=== PATIENT | female | born 1940 | race Caucasian/White ===

== ENCOUNTER 2018-03-10 13:27 | Emergency (ER) | payer OTHER ==
[~2018-03-10 13:27] MED LIST: ALUPENT 20MG TA20 MG PO; AMITRIPTYLINE H25 MG PO; ASPIRIN CHILDRE81 MG PO; ATENOLOL25 MG PO; B12 1MG PE1000 MCG/M IM; ENBREL50 MG/ML SC; FOLIC ACID 1 MG PO; LEVOTHYROXINE0.1 M1 PO; METFORMIN HYD1000 MG PO; METHOTREXATE25 MG/M1 PO; MEVACOR20 MG PO; PRINIVIL 5MG5 MG PO; PROLIA60 MG/ML IV; ROBITUSSIN W/CO10 ML PO; TESSALON PERLE100 MG PO; TRAMADOL HYDROC50 MG PO; VERAPAMIL HCL120 M2 PO; VERAPAMIL HCL240 MG PO; VESICARE 5MG5 MG PO
--- NOTE | 2018-03-10 15:46 | CT SCAN REPORT ---
EXAMINATION: CT HEAD WITHOUT CONTRAST CLINICAL INFORMATION: Head injury. Laceration to head. COMPARISON: CT scan of the head 10/20/2017. TECHNIQUE: Contiguous axial imaging was performed from the skull base to vertex without intravenous administration of contrast. DLP: 618.18 mGy-cm FINDINGS: There is no evidence of acute intracranial hemorrhage or territorial infarction. No abnormal mass effect or midline shift is seen. Rosenberg to white matter differentiation is well preserved. No extra-axial fluid collections are identified. There is mild commensurate prominence of ventricles and sulci consistent with mild diffuse volume loss. There are scattered areas low-attenuation the periventricular and subcortical white matter, consistent with chronic microangiopathic changes. There is atheromatous calcification of the bilateral cavernous internal carotid arteries. A small calcification in the right posterior lower bea is unchanged. There is a small laceration with soft tissue swelling over the right periorbital region. There are no acute osseous findings. There have been bilateral lens extractions. There are degenerative changes of the bilateral temporomandibular joints. There is minimal mucoperiosteal thickening in the visualized left maxillary sinus. The nasal septum is slightly deviated to the right with a right-sided spur. The mastoid air cells are well-aerated. IMPRESSION: 1. There are no acute bleeds or territorial infarcts. 2. There are no acute osseous findings. There is a laceration over the right periorbital region. 3. The study redemonstrates diffuse volume loss and chronic microvascular ischemic disease. There is a stable calcification in the posterior lower bea.
--- NOTE | 2018-03-10 16:02 | ED GENERAL ADULT ---
History of Present Illness General Chief Complaint: Facial or Head Injury Stated Complaint: TELEVISION FELL ON FACE AND HEAD Source: patient Exam Limitations: no limitations Vital Signs & Intake/Output Vital Signs & Intake/Output Vital Signs Date Time Temp Pulse Resp B/P B/P Pulse O2 O2 Flow FiO2 Mean Ox Delivery Rate 03/10 1627 97.5 65 20 141/70 99 Room Air 03/10 1405 97.0 63 22 141/74 96 Allergies Coded Allergies: Penicillins (HIVES 02/08/16) adhesive tape (UNKNOWN 02/08/16) cephalexin (From KEFLEX) (HIVES 02/08/16) erythromycin base (HIVES 02/08/16) meperidine (HIVES 02/08/16) methocarbamol (From ROBAXIN) (HIVES 02/08/16) propoxyphene (UNKNOWN 02/08/16) sulindac (HIVES 02/08/16) tolmetin (From TOLECTIN) (UNKNOWN 02/08/16) Uncoded Allergies: DERMODEX (UNKNOWN 11/10/14) ZOMAX (UNKNOWN 11/10/14) Reconcile Medications AMITRIPTYLINE HCL (Amitriptyline HCl) 25 MG TABLET 1 TAB PO AT BEDTIME SLEEP (Reported) Aspirin (Children's Aspirin) 81 MG TAB.CHEW 1 TAB PO DAILY HEART HEALTH ( Reported) Atenolol 25 MG TABLET 1 TAB PO DAILY HTN (Reported) Benzonatate (Tessalon Perle) 100 MG CAPSULE 1 CAP PO Q8H COUGH (Reported) Cyanocobalamin (Cyanocobalamin Injection) 1,000 MCG/ML VIAL 1 ML IM Q30D supplement (Reported) Reason to Stop at ADM: MONTHLY INJECTION, NOT NEEDED IN THIS HOSPITAL STAY Denosumab (Prolia) 60 MG/ML SYRINGE 60 ML IV Q180D OSTEOPOROSIS (Reported) Reason to Stop at ADM: 6MONTHLY INJECTION, NOT NEEDED IN THIS HOSPITAL STAY Etanercept (Enbrel) 25 MG/0.5 ML (0.51 ML) SYRINGE 1 DOSE SC QW ARTHRITIS ( Reported) Reason to Stop at ADM: NOT NEEDED Folic Acid 1 MG TABLET 1 TAB PO DAILY SUPPLEMENT (Reported) Levothyroxine Sodium 0.1 MG TAB 1 TAB PO DAILY HYPOTHYROID (Reported) Lovastatin (Mevacor) 20 MG TABLET 1 TAB PO DAILY CHOLESTROL (Reported) Metaproterenol (Alupent 20MG Tablet) 20 MG TABLET 1 TAB PO DAILY BREATHING ( Reported) METFORMIN HCL (Metformin Hydrochloride) 1,000 MG TABLET 1 TAB PO BID DIABETES (Reported) Reason to Stop at ADM:ISS Methotrexate 2.5 MG TABLET 7 TAB PO ONCE A WEEK ARTHRITIS (Reported) Reason to Stop at ADM: NOT NEEDED Robitussin AC (Guaifenesin-Codeine Syrup) 200 MG-20 MG/10 ML LIQUID 5 ML PO Q6 COUGH Solifenacin Succinate (Vesicare) 5 MG TABLET 1 TAB PO DAILY BLADDER (Reported ) TRAMADOL HCL (Tramadol Hydrochloride) 50 MG TABLET 1 TAB PO Q6H PRN PAIN ( Reported) VERAPAMIL HCL (Verapamil ER) 120 MG TABLET.ER 1 TAB PO DAILY HEART Triage Note: PER PT PUTTING DOWN RECLINER LEG POPPED UP AND BOUNCED BACK 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 yes Onset: Abrupt Duration: hour(s): Timing: recent history HPI: 03/10/18 5:11 PM 77-year-old female presents to the emergency department after being hit on the head with a television. The patient was sitting in a recliner chair and it broke and she fell backwards. It hit the TV and this fell onto her head. She denies neck pain vomiting or other complaints. She has a 2 inch laceration to the right superior periorbital area, no other injuries. Past History Travel History Traveled to [place] past 21 day No Medical History Any Pertinent Medical History? see below for history Neurological: NONE EENT: NONE Cardiovascular: AFIB, hyperlipidemia Respiratory: NONE Gastrointestinal: NONE Hepatic: NONE Renal: NONE Musculoskeletal: NONE Psychiatric: NONE Endocrine: diabetes History of MRSA: No History of VRE: No History of CDIFF: No Surgical History Surgical History: non-contributory Psychosocial History Who do you live with Family Services at Home None What is your primary language Tajik Tobacco Use: Never used Family History Hx Contributory? No Review of Systems Review of Systems Constitutional: Denies: fever. EENTM: Denies: visual changes. Respiratory: Denies: short of breath. Cardiovascular: Denies: chest pain. GI: Denies: abdominal pain. Genitourinary: Reports: no symptoms. Musculoskeletal: Reports: see HPI. Skin: Reports: see HPI. Neurological/Psychological: Reports: see HPI. Hematologic/Endocrine: Reports: see HPI. Physical Exam Physical Exam General Appearance: alert, awake, anxious, mild distress Head: active bleeding Eyes: Bilateral: normal appearance, PERRL, EOMI. Ears, Nose, Throat: normal pharynx Neck: normal inspection, supple, full range of motion Respiratory: chest non-tender, no respiratory distress Cardiovascular: regular rate/rhythm Peripheral Pulses: 4+ radial (R), 4+ radial (L) Gastrointestinal: non-tender Back: normal range of motion Extremities: normal inspection Neurologic/Psych: no motor/sensory deficits, awake, alert, oriented x 3 Skin: 2 inch linear laceration right supraorbital area Core Measures ACS in differential dx? No CVA/TIA Diagnosis: No Sepsis Present: No Sepsis Focused Exam Completed? No Progress Differential Diagnoses I considered the following diagnoses in my evaluation of the patient: Plan of Care: Current Medications Sig/Frederick Start time Last Medication Dose Stop Time Status Admin Acetaminophen 650 MG ONCE ONE 03/10 1630 UNVr / (Tylenol) 03/10 163 1620 Lidocaine 10 ML ONCE ONE 03/10 1630 UNVr 05/08 (Lidocaine 1%) 03/10 1631 1620 Tetanus/Diphtheria 0.5 ML ONCE ONE 03/10 1630 UNVr 05/08 Toxoids Adsorbed 03/10 1631 1620 (Decavac) Initial ED EKG: none Departure Departure Disposition: HOME OR SELF CARE Condition: Stable Clinical Impression Primary Impression: Head injury Secondary Impressions: Laceration Referrals: Alejandra Roberts MD (PCP/Family) Departure Forms: Customer Survey General Discharge Information Comments ct PATIENT: LEONEL ARAUJO PRESENT AGE: 77 PATIENT ACCOUNT NO: [id number] : 40 LOCATION: [facility] ORDERING PHYSICIAN: Sj Abrams DO SERVICE DATE: 03/10/18 EXAM TYPE: CAT - CT HEAD WO IV CONTRAST EXAMINATION: CT HEAD WITHOUT CONTRAST CLINICAL INFORMATION: Head injury. Laceration to head. COMPARISON: CT scan of the head 10/20/2017. TECHNIQUE: Contiguous axial imaging was performed from the skull base to vertex without intravenous administration of contrast. DLP: 618.18 mGy-cm FINDINGS: There is no evidence of acute intracranial hemorrhage or territorial infarction. No abnormal mass effect or midline shift is seen. Rosenberg to white matter differentiation is well preserved. No extra-axial fluid collections are identified. There is mild commensurate prominence of ventricles and sulci consistent with mild diffuse volume loss. There are scattered areas low-attenuation the periventricular and subcortical white matter, consistent with chronic microangiopathic changes. There is atheromatous calcification of the bilateral cavernous internal carotid arteries. A small calcification in the right posterior lower bea is unchanged. There is a small laceration with soft tissue swelling over the right periorbital region. There are no acute osseous findings. There have been bilateral lens extractions. There are degenerative changes of the bilateral temporomandibular joints. There is minimal mucoperiosteal thickening in the visualized left maxillary sinus. The nasal septum is slightly deviated to the right with a right-sided spur. The mastoid air cells are well-aerated. IMPRESSION: 1. There are no acute bleeds or territorial infarcts. 2. There are no acute osseous findings. There is a laceration over the right periorbital region. 3. The study redemonstrates diffuse volume loss and chronic microvascular ischemic disease. There is a stable calcification in the posterior lower bea. DICTATED BY: Bipin Landon MD DATE/TIME DICTATED:03/10/181536 LICENSED REAL ESTATE BROKER:AIDA DATE/TIME TRANSCRIBED:03/10/181536 CONFIDENTIAL, DO NOT COPY WITHOUT APPROPRIATE AUTHORIZATION. <Electronically signed in Other Vendor System> SIGNED BY: Bipin Landon MD 03/10/18 1546 Critical Care Note Critical Care Note Critical Care Time: non-applicable Comments: Procedure Under sterile technique and local anesthesia to 2 inch laceration was closed with 8 5-0 nylon sutures by the PA student under my direct supervision. Wound was irrigated vigorously prior to closure. 5 mL of 1% lidocaine without epinephrine were utilized.
[2018-03-10 16:27] VITALS: BP 141/70
== END 2018-03-10 17:35 ==
LOC: ERH 13:27
DX: S09.90XA Unspecified injury of head, initial encounter (principal); S01.111A Laceration without foreign body of right eyelid and periocular area, initial encounter; W20.8XXA Other cause of strike by thrown, projected or falling object, initial encounter; Y93.9 Activity, unspecified; Y92.9 Unspecified place or not applicable
CPT/HCPCS: 90471; 90714; J2001

== ENCOUNTER 2018-03-17 10:22 | Emergency (ER) | payer OTHER ==
[~2018-03-17] VITALS: Ht 167.6 cm; Wt 126.6 kg
[2018-03-17 11:04] VITALS: BP 121/77
--- NOTE | 2018-03-17 11:25 | ED GENERAL ADULT ---
History of Present Illness General Chief Complaint: Suture Removal/Wound Recheck Stated Complaint: SUTURE REMOVAL Source: patient Exam Limitations: no limitations Vital Signs & Intake/Output Vital Signs & Intake/Output Vital Signs Date Time Temp Pulse Resp B/P B/P Pulse O2 O2 Flow FiO2 Mean Ox Delivery Rate 03/17 1104 98.6 80 18 121/77 99 Room Air Allergies Coded Allergies: Penicillins (HIVES 02/08/16) adhesive tape (UNKNOWN 02/08/16) cephalexin (From KEFLEX) (HIVES 02/08/16) erythromycin base (HIVES 02/08/16) meperidine (HIVES 02/08/16) methocarbamol (From ROBAXIN) (HIVES 02/08/16) propoxyphene (UNKNOWN 02/08/16) sulindac (HIVES 02/08/16) tolmetin (From TOLECTIN) (UNKNOWN 02/08/16) Uncoded Allergies: DERMODEX (UNKNOWN 11/10/14) ZOMAX (UNKNOWN 11/10/14) Reconcile Medications AMITRIPTYLINE HCL (Amitriptyline HCl) 25 MG TABLET 1 TAB PO AT BEDTIME SLEEP (Reported) Aspirin (Children's Aspirin) 81 MG TAB.CHEW 1 TAB PO DAILY HEART HEALTH ( Reported) Atenolol 25 MG TABLET 1 TAB PO DAILY HTN (Reported) Benzonatate (Tessalon Perle) 100 MG CAPSULE 1 CAP PO Q8H COUGH (Reported) Cyanocobalamin (Cyanocobalamin Injection) 1,000 MCG/ML VIAL 1 ML IM Q30D supplement (Reported) Reason to Stop at ADM: MONTHLY INJECTION, NOT NEEDED IN THIS HOSPITAL STAY Denosumab (Prolia) 60 MG/ML SYRINGE 60 ML IV Q180D OSTEOPOROSIS (Reported) Reason to Stop at ADM: 6MONTHLY INJECTION, NOT NEEDED IN THIS HOSPITAL STAY Etanercept (Enbrel) 25 MG/0.5 ML (0.51 ML) SYRINGE 1 DOSE SC QW ARTHRITIS ( Reported) Reason to Stop at ADM: NOT NEEDED Folic Acid 1 MG TABLET 1 TAB PO DAILY SUPPLEMENT (Reported) Levothyroxine Sodium 0.1 MG TAB 1 TAB PO DAILY HYPOTHYROID (Reported) Lovastatin (Mevacor) 20 MG TABLET 1 TAB PO DAILY CHOLESTROL (Reported) Metaproterenol (Alupent 20MG Tablet) 20 MG TABLET 1 TAB PO DAILY BREATHING ( Reported) METFORMIN HCL (Metformin Hydrochloride) 1,000 MG TABLET 1 TAB PO BID DIABETES (Reported) Reason to Stop at ADM:ISS Methotrexate 2.5 MG TABLET 7 TAB PO ONCE A WEEK ARTHRITIS (Reported) Reason to Stop at ADM: NOT NEEDED Robitussin AC (Guaifenesin-Codeine Syrup) 200 MG-20 MG/10 ML LIQUID 5 ML PO Q6 COUGH Solifenacin Succinate (Vesicare) 5 MG TABLET 1 TAB PO DAILY BLADDER (Reported ) TRAMADOL HCL (Tramadol Hydrochloride) 50 MG TABLET 1 TAB PO Q6H PRN PAIN ( Reported) VERAPAMIL HCL (Verapamil ER) 120 MG TABLET.ER 1 TAB PO DAILY HEART Triage Note: HERE 4 SUTURE REMOVAL (8) TO R FOREHEAD, PLACED 1 WEEK AGO. Triage Nurses Notes Reviewed? yes Onset: Abrupt Duration: day(s): Timing: recent history HPI: 03/17/18 11:23 AM 77-year-old female presents to the emergency department for suture removal. She denies any complaints. No headache. No rash. No discharge. No fever. She has a sutured wound over the right supraorbital area. Past History Travel History Traveled to [place] past 21 day No Medical History Any Pertinent Medical History? see below for history Neurological: NONE EENT: NONE Cardiovascular: AFIB, hyperlipidemia Respiratory: NONE Gastrointestinal: NONE Hepatic: NONE Renal: NONE Musculoskeletal: NONE Psychiatric: NONE Endocrine: diabetes History of MRSA: No History of VRE: No History of CDIFF: No Tetanus Vaccine: 03/10/18 Surgical History Surgical History: non-contributory Psychosocial History Who do you live with Family Services at Home None What is your primary language French Tobacco Use: Never used ETOH Use: denies use Family History Hx Contributory? No Review of Systems Review of Systems Constitutional: Denies: fever. EENTM: Reports: see HPI. Respiratory: Denies: short of breath. Cardiovascular: Denies: chest pain. GI: Reports: no symptoms. Genitourinary: Reports: no symptoms. Musculoskeletal: Reports: no symptoms. Skin: Reports: see HPI. Neurological/Psychological: Denies: headache. Hematologic/Endocrine: Denies: bleeding. Physical Exam Physical Exam General Appearance: alert, awake, anxious, mild distress Head: evidence of injury, sutured wound, right supraorbital area Eyes: Bilateral: normal appearance, PERRL, EOMI. Ears, Nose, Throat: normal pharynx Neck: normal inspection, supple Respiratory: no respiratory distress Cardiovascular: regular rate/rhythm Back: normal range of motion Extremities: normal range of motion Neurologic/Psych: no motor/sensory deficits, awake, alert, oriented x 3 Skin: ecchymosis Comments: Exam was unremarkable other than periorbital ecchymosis that is resolving and a well approximated sutured wound. Core Measures ACS in differential dx? No CVA/TIA Diagnosis: No Sepsis Present: No Sepsis Focused Exam Completed? No Progress Differential Diagnoses I considered the following diagnoses in my evaluation of the patient: Wound infection, wound dehiscence, intracranial bleed, foreign body] Plan of Care: Follow-up as needed. Initial ED EKG: none Departure Departure Disposition: HOME OR SELF CARE Condition: Stable Clinical Impression Primary Impression: Visit for suture removal Referrals: Alejandra VARGAS,Alejandra (PCP/Family) Departure Forms: Customer Survey General Discharge Information Comments Procedure. The sutures were removed. Steri-Strips were applied. Critical Care Note Critical Care Note Critical Care Time: non-applicable
== END 2018-03-17 11:40 ==
LOC: ERH 10:22
DX: Z48.02 Encounter for removal of sutures (principal)